=== PATIENT | male | born 1990 | race Caucasian/White ===

== ENCOUNTER 2022-06-23 10:07 | Emergency (ER) | payer SELFPAY ==
[~2022-06-23] VITALS: Ht 172.7 cm; Wt 68.2 kg
[2022-06-23 15:59] VITALS: BP 140/100; PULSE 82; TEMP 98.1
[2022-06-23] MEDS ORDERED: NORCO 325 MG-51 TAB PO ×2 (16:59→17:06)
== END 2022-06-23 12:45 | disposition other institution (70) ==
LOC: COL.ER 10:07
DX: S81.812A Laceration without foreign body, left lower leg, initial encounter (principal); Z23 Encounter for immunization; Z28.310 Unvaccinated for COVID-19; W25.XXXA Contact with sharp glass, initial encounter; Y92.59 Other trade areas as the place of occurrence of the external cause; Y99.0 Civilian activity done for income or pay
CPT/HCPCS: J0690; J1100; J2405; J2704; J3010; J7120